=== PATIENT | female | born 1945 | race African-American/Black ===

== ENCOUNTER 2017-05-08 12:13 | Emergency (ER) | payer BC ==
[~2017-05-08] VITALS: Ht 160 cm; Wt 95.0 kg
[~2017-05-08 12:13] MED LIST: OMEPRAZOLE PO
[2017-05-08] MEDS ORDERED: ALBUTEROL (0.083%) 2.5MG/3ML NEB HHN STA (12:37)
[2017-05-08] MEDS ORDERED: LEVOFLOXACIN 750MG PREMIX 150 ML IV ONE (13:00)
[2017-05-08 13:30] LABS: BASOPHILS % 0.3 % (0.0-2.0); EOSINOPHILS % 0.4 % (0.0-5.0); HEMATOCRIT. 38.5 % (36.0-48.0); HEMOGLOBIN. 12.5 g/dL (12.0-16.0); LYMPHOCYTES % 40.4 % (20.0-50.0); MEAN CORPUSCULAR HEMOGLOBIN 28.2 pg (28.0-32.0); MEAN CORPUSCULAR VOLUME 86.5 fL (81.0-99.0); MEAN PLATELET VOLUME 7.5 fl (7.4-10.4); MONOCYTES % 11.9 % (2.0-8.0); PLATELET 292 x1000/uL (130-400); RED BLOOD CELL COUNT 4.45 mill/uL (4.2-5.4); RED CELL DISTRIBUTION WIDTH 13.1 % (11.6-14.6)
[2017-05-08 13:31] LABS: CHLORIDE 99 mEq/L (98-107)
[2017-05-08 15:02] VITALS: BP 119/63
== END 2017-05-08 15:03 | disposition home or self-care (01) ==
LOC: ER 13:28
DX: J18.9 Pneumonia, unspecified organism (principal); I10 Essential (primary) hypertension
CPT/HCPCS: 36415; 71045; 80053; 85025; 87040; 94640; 96365; 99285; J1956; J7611

== ENCOUNTER 2017-11-19 12:22 | Emergency (ER) | payer BC ==
[~2017-11-19] VITALS: Ht 165.1 cm; Wt 93.0 kg
[2017-11-19 12:26] VITALS: BP 154/119
[2017-11-19] MEDS ORDERED: IPRATROPIUM BROMIDE (0.02%) 0.5MG/2.5ML NEB HHN STA (12:35)
[2017-11-19] MEDS ORDERED: ALBUTEROL (0.083%) 2.5MG/3ML NEB HHN STA (12:35)
[2017-11-19 13:25] LABS: BASOPHILS % 0.5 % (0.0-2.0); EOSINOPHILS % 2.5 % (0.0-5.0); HEMATOCRIT. 41.3 % (36.0-48.0); HEMOGLOBIN. 13.5 g/dL (12.0-16.0); LYMPHOCYTES % 32.3 % (20.0-50.0); MEAN CORPUSCULAR HEMOGLOBIN 28.8 pg (28.0-32.0); MEAN CORPUSCULAR VOLUME 87.9 fL (81.0-99.0); MEAN PLATELET VOLUME 8.2 fl (7.4-10.4); MONOCYTES % 7.4 % (2.0-8.0); NEUTROPHILS % 57.3 % (40.0-76.0); PLATELET 307 x1000/uL (130-400); RED BLOOD CELL COUNT 4.69 mill/uL (4.2-5.4)
[2017-11-19 13:32] LABS: CHLORIDE 105 mEq/L (98-107)
[2017-11-19 13:41] LABS: INR 1.1
[2017-11-19] MEDS ORDERED: DIPHENHYDRAMINE 25MG CAPSULE PO ONE (14:00)
[2017-11-19 16:06] LABS: CLARITY URINE CLOUDY (CLEAR); COLOR URINE YELLOW (YELLOW); KETONES URINE NEGATIVE (NEGATIVE); LEUKOCYTE ESTERASE URINE 2+ (NEGATIVE); NITRITE URINE POSITIVE (NEGATIVE); OCCULT BLOOD URINE 1+ (NEGATIVE); PROTEIN URINE NEGATIVE (NEGATIVE); UROBILINOGEN URINE 0.2 E.U./dL (0.2-1.0)
== END 2017-11-19 16:24 | disposition home or self-care (01) ==
LOC: ER 16:12
DX: S80.862A Insect bite (nonvenomous), left lower leg, initial encounter (principal); S80.861A Insect bite (nonvenomous), right lower leg, initial encounter; R06.02 Shortness of breath; J45.909 Unspecified asthma, uncomplicated; E27.1 Primary adrenocortical insufficiency; I12.9 Hypertensive chronic kidney disease with stage 1 through stage 4 chronic kidney disease, or unspecified chronic kidney disease; N18.9 Chronic kidney disease, unspecified; W57.XXXA Bitten or stung by nonvenomous insect and other nonvenomous arthropods, initial encounter; Y93.89 Activity, other specified; Y92.018 Other place in single-family (private) house as the place of occurrence of the external cause
CPT/HCPCS: 36415; 71045; 80053; 81003; 85025; 85610; 93005; 99285

== ENCOUNTER 2018-06-15 18:38 | Emergency (ER) | payer BC, OTHER ==
[~2018-06-15] VITALS: Ht 160 cm; Wt 80.0 kg
[2018-06-15] MEDS ORDERED: HYDR10TA14 PO (18:55)
[2018-06-15 22:53] LABS: CHLORIDE 106 mEq/L (98-107)
[2018-06-15 22:54] LABS: BASOPHILS % 0.3 % (0.0-2.0); EOSINOPHILS % 1.9 % (0.0-5.0); HEMATOCRIT. 41.8 % (36.0-48.0); HEMOGLOBIN. 13.9 g/dL (12.0-16.0); MEAN CORPUSCULAR HEMOGLOBIN 28.7 pg (28.0-32.0); MEAN CORPUSCULAR VOLUME 86.6 fL (81.0-99.0); MEAN PLATELET VOLUME 8.2 fl (7.4-10.4); MONOCYTES % 7.5 % (2.0-8.0); NEUTROPHILS % 57.3 % (40.0-76.0); PLATELET 313 x1000/uL (130-400); RED BLOOD CELL COUNT 4.82 mill/uL (4.2-5.4); RED CELL DISTRIBUTION WIDTH 13.8 % (11.6-14.6)
[2018-06-16 00:46] VITALS: BP 116/74
== END 2018-06-16 00:46 | disposition home or self-care (01) ==
LOC: ER 18:38
DX: R25.2 Cramp and spasm (principal); I10 Essential (primary) hypertension; Z98.51 Tubal ligation status; Z87.01 Personal history of pneumonia (recurrent); Z98.890 Other specified postprocedural states
CPT/HCPCS: 36415; 83735; 99283

== ENCOUNTER 2018-11-13 16:22 | Emergency (ER) | payer BC ==
[~2018-11-13] VITALS: Ht 160 cm; Wt 97.0 kg
[~2018-11-13 16:22] MED LIST changes: +HYDR-3847 PO
[2018-11-13 16:46] VITALS: BP 145/98
[2018-11-17] MEDS ORDERED: FLUD0.1T PO (05:36)
[2018-11-17] MEDS ORDERED: AZIT250T12 PO (05:36)
[2018-11-17] MEDS ORDERED: MAGN200T5 PO (05:36)
[2018-11-17] MEDS ORDERED: ATEN-42 PO (05:36)
[2018-11-17] MEDS ORDERED: ALLO100T PO (05:36)
[2018-11-17] MEDS ORDERED: HYDR20TA23 PO (05:36)
[2018-11-17] MEDS ORDERED: OMEP20TA2 PO (05:36)
== END 2018-11-13 18:51 | disposition left against medical advice (07) ==
LOC: ER 16:22
DX: Z53.21 Procedure and treatment not carried out due to patient leaving prior to being seen by health care provider (principal); I10 Essential (primary) hypertension; E27.1 Primary adrenocortical insufficiency; Z87.01 Personal history of pneumonia (recurrent); Z98.51 Tubal ligation status